=== PATIENT | female | born 1995 | race Caucasian/White ===

== ENCOUNTER 2021-03-29 19:22 | Observation (INO) | payer SELFPAY ==
[2021-03-29] MEDS ORDERED: Zofran 4 MG/2 ML VIAL IV ONE (19:40)
[2021-03-29] MEDS ORDERED: MORPHINE SULFATE 4 MG INJ IV ONE (19:40)
[2021-03-29] MEDS ORDERED: Sodium Chloride 0.9% 1000 ML 1,000 ML IV STA (19:40)
--- NOTE | 2021-03-29 19:43 | ERPHSYRPT ---
- History of Present Illness Time Seen by Provider: 03/29/21 19:30 Historian: patient Exam Limitations: no limitations Physician History: 25 years old female presented in the ER with sudden onset right upper quadrant pain almost an hour prior to arrival, constant, sharp, moderate to severe intensity, aggravated with palpation movements, deep breathing and position albert ge, unable to find a comfortable spot, associated with nausea and vomiting. Reports having similar symptoms 3 months ago, was evaluated at hospital in [place], was recommended to have cholecystectomy but patient never followed up with surgery. Denies any fever chills. Timing/Duration: hour(s) (1), constant, sudden, worse Activities at Onset: rest Quality: sharpness Abdominal Pain Onset Location: RUQ Pain Radiation: no radiation Severity of Pain-Max: severe Severity of Pain-Current: severe Modifying Factors: Worsens With: breathing, movement, palpation, vomiting Associated Symptoms: nausea, vomiting Previous symptoms: same symptoms as today Allergies/Adverse Reactions: No Known Drug Allergies Allergy (Unverified 03/29/21 19:31) Home Medications: No Reportable Medications [No Reported Medications] 03/29/21 [History] - Review of Systems Constitutional: No Symptoms Eyes: No Symptoms Ears, Nose, & Throat: No Symptoms Respiratory: No Symptoms Cardiac: No Symptoms Abdominal/Gastrointestinal: Abdominal Pain, Nausea, Vomiting Genitourinary Symptoms: No Symptoms Musculoskeletal: No Symptoms Skin: No Symptoms Neurological: No Symptoms Psychological: No Symptoms Endocrine: No Symptoms Hematologic/Lymphatic: No Symptoms Immunological/Allergic: No Symptoms - Nursing Vital Signs Nursing Vital Signs: Initial Vital Signs Temperature 98.3 F 03/29/21 19:31 Pulse Rate 100 H 03/29/21 19:31 Respiratory Rate 26 H 03/29/21 19:31 Blood Pressure 156/110 03/29/21 19:31 O2 Sat by Pulse Oximetry 98 03/29/21 19:31 Pain Scale Pain Intensity 5 - Physical Exam General Appearance: no apparent distress, alert Eye Exam: PERRL/EOMI Ears, Nose, Throat Exam: normal ENT inspection, pharynx normal Neck Exam: normal inspection, non-tender, supple, full range of motion Respiratory Exam: normal breath sounds, lungs clear Cardiovascular Exam: regular rate/rhythm, normal heart sounds Gastrointestinal/Abdomen Exam: soft, normal bowel sounds, tenderness (Right upper quadrant with guarding, positive Hunt sign) Back Exam: normal inspection, normal range of motion Extremity Exam: normal inspection, normal range of motion Neurologic Exam: alert, oriented x 3, cooperative Skin Exam: normal color SpO2 Interpretation: normal SpO2: 96 O2 Delivery: Room Air Ordered Tests: Active Orders 24 hr Category Date Time Status IV Insertion STAT Care 03/29/21 19:40 Active NPO (ED) STAT Care 03/29/21 19:40 Active ABDOMEN AND PELVIS W CONTRAST [CT] Stat Exams 03/29/21 20:15 Taken GALLBLADDER [US] Routine Exams 03/30/21 08:00 Ordered AMYLASE Stat Lab 03/29/21 19:51 Completed CBC W DIFF Stat Lab 03/29/21 19:51 Completed CMP Stat Lab 03/29/21 19:51 Completed HCG,QUALITATIVE URINE Stat Lab 03/29/21 19:51 Completed LIPASE Stat Lab 03/29/21 19:51 Completed UA W/RFX UR CULTURE Stat Lab 03/29/21 19:51 Completed Transfer Order Routine Transfer 03/29/21 Ordered Medication Summary Discontinued Medications Generic Name Dose Route Start Last Admin Trade Name Marixa PRN Reason Stop Dose Admin Hydromorphone HCl Confirm 03/29/21 20:11 Hydromorphone 1 Mg/Ml Injection Administered 03/29/21 20:12 Dose 1 mg .ROUTE .STK-MED ONE Hydromorphone HCl 1 mg 03/29/21 20:17 03/29/21 20:21 Hydromorphone 1 Mg/Ml Injection IV 03/29/21 20:18 1 mg STAT ONE Administration Hydromorphone HCl Confirm 03/29/21 22:19 Hydromorphone 1 Mg/Ml Injection Administered 03/29/21 22:20 Dose 1 mg .ROUTE .STK-MED ONE Hydromorphone HCl 1 mg 03/29/21 22:23 03/29/21 22:24 Hydromorphone 1 Mg/Ml Injection IV 03/29/21 22:24 1 mg STAT ONE Administration Sodium Chloride 1,000 mls @ 999 mls/hr 03/29/21 19:40 03/29/21 21:01 Sodium Chloride 0.9% 1000 Ml IV 03/29/21 20:40 Infused .Q1H1M STA Infusion Sodium Chloride Confirm 03/29/21 19:47 Sodium Chloride 0.9% 1000 Ml Administered 03/29/21 19:48 Dose 1,000 mls @ ud .ROUTE .STK-MED ONE Piperacillin Sod/Tazobactam 100 mls @ 200 mls/hr 03/29/21 23:24 Sod 3.375 gm/ Sodium Chloride IV 03/29/21 23:53 STAT ONE Morphine Sulfate 4 mg 03/29/21 19:40 03/29/21 19:47 Morphine Sulfate 4 Mg Inj IV 03/29/21 19:41 4 mg STAT ONE Administration Morphine Sulfate Confirm 03/29/21 19:47 Morphine Sulfate 4 Mg Inj Administered 03/29/21 19:48 Dose 4 mg .ROUTE .STK-MED ONE Morphine Sulfate 4 mg 03/30/21 00:05 Morphine Sulfate 4 Mg Inj IV 03/30/21 00:06 STAT ONE Ondansetron HCl 4 mg 03/29/21 19:40 03/29/21 19:48 Zofran 4 Mg/2 Ml Vial IV 03/29/21 19:41 4 mg STAT ONE Administration Ondansetron HCl Confirm 03/29/21 19:46 Zofran 4 Mg/2 Ml Vial Administered 03/29/21 19:47 Dose 4 mg .ROUTE .STK-MED ONE Lab/Rad Data: Laboratory Result Diagrams 03/29/21 19:51 03/29/21 19:51 Laboratory Results 03/29/21 03/29/21 03/29/21 Range/Units 23:06 19:51 19:51 WBC 8.0 (4.0-10.5) K/mm3 RBC 5.39 (4.1-5.4) M/mm3 Hgb 13.7 (12.0-16.0) gm/dl Hct 43.8 (35-47) % MCV 81.3 (78-100) fl MCH 25.4 L (26-32) pg MCHC 31.3 L (32-36) g/dl RDW 14.4 H (11.5-14.0) % Plt Count 243 (150-450) K/mm3 MPV 12.3 H (7.5-11.0) fl Gran % 63.0 (36.0-66.0) % Eos # (Auto) 0.20 (0-0.5) Absolute Lymphs (auto) 2.30 (1.0-4.6) Absolute Monos (auto) 0.43 (0.0-1.3) Lymphocytes % 28.6 (24.0-44.0) % Monocytes % 5.4 (0.0-12.0) % Eosinophils % 2.5 (0.00-5.0) % Basophils % 0.5 (0.0-0.4) % Absolute Granulocytes 5.06 (1.4-6.9) Basophils # 0.04 (0-0.4) Sodium 140 (137-145) mmol/L Potassium 4.0 (3.5-5.1) mmol/L Chloride 105 (98-107) mmol/L Carbon Dioxide 24 (22-30) mmol/L Anion Gap 14.4 (5-15) MEQ/L BUN 18 H (7-17) mg/dL Creatinine 0.81 (0.52-1.04) mg/dL Estimated GFR > 60.0 ML/MIN Glucose 93 (74-106) mg/dL Calcium 9.5 (8.4-10.2) mg/dL Total Bilirubin 0.40 (0.2-1.3) mg/dL AST 31 (14-36) U/L ALT 33 (0-35) U/L Alkaline Phosphatase 63 (38-126) U/L Serum Total Protein 7.5 (6.3-8.2) g/dL Albumin 4.4 (3.5-5.0) g/dL Amylase 63 (30-110) U/L Lipase 117 (23-300) U/L Urine Color (YELLOW) Urine Appearance (CLEAR) Urine pH (5-6) Ur Specific [place] (1.005-1.025) Urine Protein (Negative) Urine Ketones (NEGATIVE) Urine Blood (0-5) Herminio/ul Urine Nitrite (NEGATIVE) Urine Bilirubin (NEGATIVE) Urine Urobilinogen (0-1) mg/dL Ur Leukocyte Esterase (NEGATIVE) Urine WBC (Auto) (0-5) /HPF Urine RBC (Auto) (0-2) /HPF U Epithel Cells (Auto) (FEW) /HPF Urine Bacteria (Auto) (NEGATIVE) /HPF Urine Mucus (Auto) (NEGATIVE) /HPF Urine Culture Reflexed (NO) Urine Glucose (NEGATIVE) mg/dL Urine HCG, Qual (Negative) SARS-CoV-2 (PCR) NEGATIVE (NEGATIVE) 03/29/21 03/29/21 Range/Units 19:51 19:51 WBC (4.0-10.5) K/mm3 RBC (4.1-5.4) M/mm3 Hgb (12.0-16.0) gm/dl Hct (35-47) % MCV (78-100) fl MCH (26-32) pg MCHC (32-36) g/dl RDW (11.5-14.0) % Plt Count (150-450) K/mm3 MPV (7.5-11.0) fl Gran % (36.0-66.0) % Eos # (Auto) (0-0.5) Absolute Lymphs (auto) (1.0-4.6) Absolute Monos (auto) (0.0-1.3) Lymphocytes % (24.0-44.0) % Monocytes % (0.0-12.0) % Eosinophils % (0.00-5.0) % Basophils % (0.0-0.4) % Absolute Granulocytes (1.4-6.9) Basophils # (0-0.4) Sodium (137-145) mmol/L Potassium (3.5-5.1) mmol/L Chloride (98-107) mmol/L Carbon Dioxide (22-30) mmol/L Anion Gap (5-15) MEQ/L BUN (7-17) mg/dL Creatinine (0.52-1.04) mg/dL Estimated GFR ML/MIN Glucose (74-106) mg/dL Calcium (8.4-10.2) mg/dL Total Bilirubin (0.2-1.3) mg/dL AST (14-36) U/L ALT (0-35) U/L Alkaline Phosphatase (38-126) U/L Serum Total Protein (6.3-8.2) g/dL Albumin (3.5-5.0) g/dL Amylase (30-110) U/L Lipase (23-300) U/L Urine Color YELLOW (YELLOW) Urine Appearance SLIGHTLY CLOUDY (CLEAR) Urine pH 5.0 (5-6) Ur Specific [place] 1.018 (1.005-1.025) Urine Protein NEGATIVE (Negative) Urine Ketones NEGATIVE (NEGATIVE) Urine Blood NEGATIVE (0-5) Herminio/ul Urine Nitrite NEGATIVE (NEGATIVE) Urine Bilirubin NEGATIVE (NEGATIVE) Urine Urobilinogen NEGATIVE (0-1) mg/dL Ur Leukocyte Esterase NEGATIVE (NEGATIVE) Urine WBC (Auto) NONE (0-5) /HPF Urine RBC (Auto) NONE (0-2) /HPF U Epithel Cells (Auto) RARE (FEW) /HPF Urine Bacteria (Auto) NONE SEEN (NEGATIVE) /HPF Urine Mucus (Auto) SLIGHT (NEGATIVE) /HPF Urine Culture Reflexed NO (NO) Urine Glucose NEGATIVE (NEGATIVE) mg/dL Urine HCG, Qual NEGATIVE (Negative) SARS-CoV-2 (PCR) (NEGATIVE) - Progress Progress: improved, pain not gone completely, re-examined Progress Note: 03/29/21 23:21 25 years old is evaluated for right upper quadrant pain sudden onset with repeated vomiting. She is given fluids and multiple doses of pain medication, on reevaluation her pain is better. Work-up showed normal white count, grossly unremarkable chemistries and normal liver enzymes. I have obtained CT abdomen pelvis with contrast which showed distended gallbladder but no obvious stone or pericholecystic fluid or gallbladder wall thickness. Discussed with Dr. Suh, recommended admission to medical floor and ultrasound in the morning and patient will be evaluated as per result of ultrasound. Discussed with Dr. Figueroa and patient is admitted. Discussed with : Karissa Sosa Will see patient in: hospital (observation) Counseled pt/family regarding: lab results, diagnosis, rad results - Departure Departure Disposition: Home Clinical Impression: RUQ pain Condition: Stable Critical Care Time: No Referrals: DOCTOR,NO FAMILY [Primary Care Provider] -
[2021-03-29] MEDS ORDERED: Zofran 4 MG/2 ML VIAL ONE (19:46)
[2021-03-29] MEDS ORDERED: MORPHINE SULFATE 4 MG INJ ONE (19:47)
[2021-03-29] MEDS ORDERED: Sodium Chloride 0.9% 1000 ML 1,000 ML ONE (19:47)
[2021-03-29 19:55] LABS: Absolute Neutrophil Ct (ANC) 5.06 (1.4-6.9); BASOPHIL % 0.5 % (0.0-0.4); Basophil (Absolute #) 0.04 (0-0.4); Eosinophil % 2.5 % (0.00-5.0); Hematocrit 43.8 % (35-47); Hemoglobin 13.7 gm/dl (12.0-16.0); Lymphocytes % 28.6 % (24.0-44.0); Mean Cell Volume 81.3 fl (78-100); Mean Corpuscular Hemoglobin 25.4 pg (26-32); Mean Corpuscular Hgb Concent. 31.3 g/dl (32-36); Mean Platelet Volume 12.3 fl (7.5-11.0); Monocyte (Absolute #) 0.43 (0.0-1.3); Monocytes % 5.4 % (0.0-12.0); Platelet Count 243 K/mm3 (150-450); Red Blood Count 5.39 M/mm3 (4.1-5.4); Red Cell Distribution Width 14.4 % (11.5-14.0)
[2021-03-29 19:57] LABS: Appearance SLIGHTLY CLOUDY (CLEAR); Bilirubin NEGATIVE (NEGATIVE); Blood NEGATIVE Ery/ul (0-5); Epithelial Cells RARE /HPF (FEW); Glucose NEGATIVE (NEGATIVE); Ketones NEGATIVE (NEGATIVE); Leukocyte Esterase NEGATIVE (NEGATIVE); Mucus SLIGHT /HPF (NEGATIVE); Nitrite NEGATIVE (NEGATIVE); Protein,Urine Dip NEGATIVE (Negative); Specific Gravity 1.018 (1.005-1.025); Urobilinogen NEGATIVE mg/dL (0-1)
[2021-03-29 20:00] LABS: Bacteria NONE SEEN /HPF (NEGATIVE)
[2021-03-29 20:08] LABS: ALBUMIN 4.4 g/dL (3.5-5.0); ALKALINE PHOSPHATASE 63 U/L (38-126); AMYLASE 63 U/L (30-110); ANION GAP 14.4 MEQ/L (5-15); BLOOD UREA NITROGEN 18 mg/dL (7-17); CHLORIDE 105 mmol/L (98-107); Calcium 9.5 mg/dL (8.4-10.2); Carbon Dioxide 24 mmol/L (22-30); Creatinine 1 0.81 mg/dL (0.52-1.04); EST GLOMERULAR FILTRATION RATE > 60.0 ML/MIN; Glucose 93 mg/dL (74-106); LIPASE 117 U/L (23-300); SGOT/AST 31 U/L (14-36); SGPT/ALT 33 U/L (0-35); SODIUM 140 mmol/L (137-145); Total Protein 7.5 g/dL (6.3-8.2)
[2021-03-29] MEDS ORDERED: Hydromorphone 1 mg/ml Injection ONE ×2 (20:11→22:19)
[2021-03-29] MEDS ORDERED: Hydromorphone 1 mg/ml Injection IV ONE ×2 (20:17→22:23)
[2021-03-29] MEDS ORDERED: Zosyn 3.375 GM Vial 3.375 GM in Sodium Chloride 100ML MINI-BAG PLUS 100 ML IV ONE (23:24)
[2021-03-30] MEDS ORDERED: MORPHINE SULFATE 4 MG INJ IV ONE (00:05)
[2021-03-30] MEDS ORDERED: MORPHINE SULFATE 4 MG INJ ONE (00:09)
[2021-03-30] MEDS ORDERED: Zofran 4 MG/2 ML VIAL IV PRN (00:23)
[2021-03-30] MEDS ORDERED: MORPHINE SULFATE 4 MG INJ IV PRN (00:23)
[2021-03-30] MEDS ORDERED: DUONEB 0.5-3 MG/3 ml Neb IH PRN (00:23)
[2021-03-30] MEDS: Sodium Chloride 0.9% W/ 20 mEq KCl/LITER 1,000 ML IV SCH ×3 (00:42→17:40)
[2021-03-30] MEDS: Zosyn 3.375 GM Vial 3.375 GM in Sodium Chloride 100ML MINI-BAG PLUS 100 ML IV SCH ×4 (01:40→19:42)
[2021-03-30] MEDS: Hydromorphone 1 mg/ml Injection IV PRN ×7 (01:45→22:55)
[2021-03-30 04:31] LABS: Absolute Neutrophil Ct (ANC) 9.63 (1.4-6.9); BASOPHIL % 0.2 % (0.0-0.4); Basophil (Absolute #) 0.03 (0-0.4); Eosinophil % 0.9 % (0.00-5.0); Eosinophil (Absolute #) 0.11 (0-0.5); Hematocrit 42.6 % (35-47); Hemoglobin 13.3 gm/dl (12.0-16.0); Lymphocyte (Absolute #) 1.67 (1.0-4.6); Lymphocytes % 13.8 % (24.0-44.0); Mean Cell Volume 81.9 fl (78-100); Mean Corpuscular Hemoglobin 25.6 pg (26-32); Mean Corpuscular Hgb Concent. 31.2 g/dl (32-36); Mean Platelet Volume 11.7 fl (7.5-11.0); Monocyte (Absolute #) 0.62 (0.0-1.3); Monocytes % 5.1 % (0.0-12.0); Platelet Count 204 K/mm3 (150-450); Red Cell Distribution Width 14.4 % (11.5-14.0); White Blood Count 12.1 K/mm3 (4.0-10.5)
[2021-03-30 04:56] LABS: ALKALINE PHOSPHATASE 62 U/L (38-126); ANION GAP 12.2 MEQ/L (5-15); BLOOD UREA NITROGEN 12 mg/dL (7-17); CHLORIDE 104 mmol/L (98-107); Calcium 8.9 mg/dL (8.4-10.2); Carbon Dioxide 25 mmol/L (22-30); Creatinine 1 0.83 mg/dL (0.52-1.04); EST GLOMERULAR FILTRATION RATE > 60.0 ML/MIN; Glucose 98 mg/dL (74-106); Potassium 4.3 mmol/L (3.5-5.1); SGOT/AST 28 U/L (14-36); SGPT/ALT 31 U/L (0-35); SODIUM 137 mmol/L (137-145)
[2021-03-30] MEDS ORDERED: Sodium Chloride 100ML MINI-BAG PLUS 100 ML IV ONE (06:29)
[2021-03-30] MEDS ORDERED: Zosyn 3.375 GM Vial IV ONE (06:29)
--- NOTE | 2021-03-30 08:39 | XRAY ---
Indication: Right upper quadrant pain. Nausea and vomiting. Two-dimensional gallbladder sonogram performed. Comparison: None Gallbladder moderately distended with a few gallstones near the neck of the gallbladder, largest 2 cm. Gallbladder wall is thickened measuring 5 mm. No pericholecystic fluid. Common bile duct measures 6.7 mm. No intrahepatic biliary distention. Remaining visualized liver, pancreas, and right kidney sonographically unremarkable. Right kidney measures 10.7 cm in length. No ascites. Impression: Distended gallbladder with cholelithiasis and wall thickening. Rule out chronic cholecystitis. Comment: Preliminary report was given.
--- NOTE | 2021-03-30 08:42 | XRAY ---
Indication: Right upper quadrant pain. Gallbladder disease. Multiple contiguous axial images obtained through the abdomen and pelvis using 80 cc Isovue 370 contrast. Comparison: None Lung bases are clear. Heart is not enlarged. Stomach mildly distended with fluid. Noncontrasted stomach and bowel loops nonobstructed. Normal appendix. Gallbladder mildly distended without gallstones or biliary distention. Spleen is enlarged measuring 14 cm. Remaining liver, pancreas, adrenal glands, kidneys, ureters, bladder, uterus, and aorta are unremarkable. No pathologic retroperitoneal lymphadenopathy. Osseous structures intact. Impression: 1. Mild distended gallbladder. Gallbladder sonogram may yield further information if clinically warranted. 2. Splenomegaly. 3. Remaining CT abdomen/pelvis with contrast exam is negative. Comment: Preliminary interpretation was made by [facility]. No critical discrepancy.
[2021-03-30] MEDS: Pepcid 20 MG VIAL IV SCH ×2 (08:51→22:55)
[2021-03-30] MEDS ORDERED: [UNRECOGNIZED DRUG - OTHER] PO SCH (10:00)
--- NOTE | 2021-03-30 10:01 | PCM.HP ---
History of Present Illness - Chief Complaint Chief Complaint: rt upper quad pain History of Present Illness: is a 25 year old female seen and examined this am following ER admission for acute cholecystitis. Patient is from [place] and has been here visiting. She developed severe abdominal pain and came to ER. She reports that she was diagnosed with GB disease at a hospital in [place] where she is from. She reports being admitted to the hospital for 4 days at that time. She reports she was told she needed to be seen by digital coordinator due to hx of hep C prior to having her GB removed. She never saw hepatologists. She reports her hep C is in "remission". She reports recent vomiting and diarrhea. She denies any medical problems and reports the only medication she takes is control. She reports she smokes 3-4 cig daily. She drinks at least 2-3 times a week and on the wee kends approx 6 hard alcohol drinks. She reports hx of drug use and that is how she contracted hep C. She has no other reported concerns at this time. - Review of Systems Constitutional: No Fever, No Chills Eyes: No Symptoms Ears, Nose, & Throat: No Symptoms Respiratory: No Cough, No Short Of Breath, No Wheezing Cardiac: No Chest Pain, No Edema Abdominal/Gastrointestinal: Abdominal Pain, Vomiting, Diarrhea, No Constipation Genitourinary Symptoms: No Symptoms Musculoskeletal: No Symptoms Skin: No Symptoms Neurological: No Headache Psychological: Drug Abuse (hx of denies current), Other (alcohol use everyday smoker), No Anxiety, No Depression Hematologic/Lymphatic: No Symptoms Immunological/Allergic: No Symptoms Medications & Allergies Home Medications: Home Medication List Non-Formulary Drug [Non-Formulary Item] 1 tablet PO DAILY 03/30/21 [History Confirmed 03/30/21] Allergies/Adverse Reactions: Allergies Allergy/AdvReac Type Severity Reaction Status Date / Time No Known Drug Allergies Allergy Verified 03/30/21 00:37 - Past Medical History Past Medical History: Yes Neurological History: No Pertinent History ENT History: No Pertinent History Cardiac History: No Pertinent History Respiratory History: No Pertinent History Endocrine Medical History: No Pertinent History Musculoskelatal History: No Pertinent History GI Medical History: Gallbladder Disease History: No Pertinent History Pyscho-Social History: No Pertinent History Reproductive Disorders: Menstrual Problems Comment: hep C -pt states not active - Female History Are you now?: (unkn) - Past Surgical History Past Surgical History: Yes Neuro Surgical History: No Pertinent History Cardiac History: No Pertinent History Respiratory Surgery: No Pertinent History GI Surgical History: No Pertinent History Genitourinary Surgical Hx: No Pertinent History Musculskeletal Surgical Hx: Orthopedic Surgery Female Surgical History: No Pertinent History Other Surgical History: left knee, etopic surgery with tube removal , in grown hair on buttocks - Social History Smoking Status: Current every day smoker Exposure to second hand smoke: Yes Alcohol: Weekly Drug Use: marijuana - Physical Exam Vital Signs: Vital Signs - 24 hr Temp Pulse Resp BP Pulse Ox 03/30/21 06:46 98.5 F 86 16 125/81 99 03/30/21 04:00 97.0 F 60 19 140/87 97 03/30/21 01:01 98.6 F 78 20 134/96 98 03/30/21 00:08 72 128/74 97 03/30/21 00:07 96 03/29/21 23:00 60 113/80 100 03/29/21 22:22 77 123/79 100 03/29/21 21:00 69 114/74 98 03/29/21 19:31 98.3 F 100 H 26 H 156/110 98 General Appearance: mild distress, alert, obese Neurologic Exam: alert, oriented x 3, cooperative, normal mood/affect, No motor deficits, No disoriented, No confusion, No agitation, No depressed mood/affect Eye Exam: eyes nml inspection, No scleral icterus Ears, Nose, Throat Exam: moist mucous membranes Neck Exam: normal inspection Respiratory Exam: normal breath sounds, lungs clear, No respiratory distress, No diminished breath sounds, No wheezing Cardiovascular Exam: regular rate/rhythm, normal heart sounds, No murmur, No friction rub, No gallop Gastrointestinal/Abdomen Exam: soft, normal bowel sounds, tenderness, No distention, No mass, No guarding, No rebound Pelvic Exam: not done Rectal Exam: not done Back Exam: normal inspection Extremity Exam: No pedal edema, No swelling, No tenderness Skin Exam: normal color, warm, dry Results - Labs Lab/Micro Results: Lab Results-Last 24 Hours 03/29/21 03/29/21 03/29/21 Range/Units 19:51 19:51 19:51 WBC 8.0 (4.0-10.5) K/mm3 RBC 5.39 (4.1-5.4) M/mm3 Hgb 13.7 (12.0-16.0) gm/dl Hct 43.8 (35-47) % MCV 81.3 (78-100) fl MCH 25.4 L (26-32) pg MCHC 31.3 L (32-36) g/dl RDW 14.4 H (11.5-14.0) % Plt Count 243 (150-450) K/mm3 MPV 12.3 H (7.5-11.0) fl Gran % 63.0 (36.0-66.0) % Eos # (Auto) 0.20 (0-0.5) Absolute Lymphs (auto) 2.30 (1.0-4.6) Absolute Monos (auto) 0.43 (0.0-1.3) Lymphocytes % 28.6 (24.0-44.0) % Monocytes % 5.4 (0.0-12.0) % Eosinophils % 2.5 (0.00-5.0) % Basophils % 0.5 (0.0-0.4) % Absolute Granulocytes 5.06 (1.4-6.9) Basophils # 0.04 (0-0.4) Sodium (137-145) mmol/L Potassium (3.5-5.1) mmol/L Chloride (98-107) mmol/L Carbon Dioxide (22-30) mmol/L Anion Gap (5-15) MEQ/L BUN (7-17) mg/dL Creatinine (0.52-1.04) mg/dL Estimated GFR ML/MIN Glucose (74-106) mg/dL Calcium (8.4-10.2) mg/dL Total Bilirubin (0.2-1.3) mg/dL AST (14-36) U/L ALT (0-35) U/L Alkaline Phosphatase (38-126) U/L Serum Total Protein (6.3-8.2) g/dL Albumin (3.5-5.0) g/dL Amylase (30-110) U/L Lipase (23-300) U/L Urine Color YELLOW (YELLOW) Urine Appearance SLIGHTLY CLOUDY (CLEAR) Urine pH 5.0 (5-6) Ur Specific [place] 1.018 (1.005-1.025) Urine Protein NEGATIVE (Negative) Urine Ketones NEGATIVE (NEGATIVE) Urine Blood NEGATIVE (0-5) Herminio/ul Urine Nitrite NEGATIVE (NEGATIVE) Urine Bilirubin NEGATIVE (NEGATIVE) Urine Urobilinogen NEGATIVE (0-1) mg/dL Ur Leukocyte Esterase NEGATIVE (NEGATIVE) Urine WBC (Auto) NONE (0-5) /HPF Urine RBC (Auto) NONE (0-2) /HPF U Epithel Cells (Auto) RARE (FEW) /HPF Urine Bacteria (Auto) NONE SEEN (NEGATIVE) /HPF Urine Mucus (Auto) SLIGHT (NEGATIVE) /HPF Urine Culture Reflexed NO (NO) Urine Glucose NEGATIVE (NEGATIVE) mg/dL Urine HCG, Qual NEGATIVE (Negative) SARS-CoV-2 (PCR) (NEGATIVE) 03/29/21 03/29/21 03/30/21 Range/Units 19:51 23:06 04:23 WBC 12.1 H (4.0-10.5) K/mm3 RBC 5.20 (4.1-5.4) M/mm3 Hgb 13.3 (12.0-16.0) gm/dl Hct 42.6 (35-47) % MCV 81.9 (78-100) fl MCH 25.6 L (26-32) pg MCHC 31.2 L (32-36) g/dl RDW 14.4 H (11.5-14.0) % Plt Count 204 (150-450) K/mm3 MPV 11.7 H (7.5-11.0) fl Gran % 80.0 H (36.0-66.0) % Eos # (Auto) 0.11 (0-0.5) Absolute Lymphs (auto) 1.67 (1.0-4.6) Absolute Monos (auto) 0.62 (0.0-1.3) Lymphocytes % 13.8 L (24.0-44.0) % Monocytes % 5.1 (0.0-12.0) % Eosinophils % 0.9 (0.00-5.0) % Basophils % 0.2 (0.0-0.4) % Absolute Granulocytes 9.63 H (1.4-6.9) Basophils # 0.03 (0-0.4) Sodium 140 (137-145) mmol/L Potassium 4.0 (3.5-5.1) mmol/L Chloride 105 (98-107) mmol/L Carbon Dioxide 24 (22-30) mmol/L Anion Gap 14.4 (5-15) MEQ/L BUN 18 H (7-17) mg/dL Creatinine 0.81 (0.52-1.04) mg/dL Estimated GFR > 60.0 ML/MIN Glucose 93 (74-106) mg/dL Calcium 9.5 (8.4-10.2) mg/dL Total Bilirubin 0.40 (0.2-1.3) mg/dL AST 31 (14-36) U/L ALT 33 (0-35) U/L Alkaline Phosphatase 63 (38-126) U/L Serum Total Protein 7.5 (6.3-8.2) g/dL Albumin 4.4 (3.5-5.0) g/dL Amylase 63 (30-110) U/L Lipase 117 (23-300) U/L Urine Color (YELLOW) Urine Appearance (CLEAR) Urine pH (5-6) Ur Specific [place] (1.005-1.025) Urine Protein (Negative) Urine Ketones (NEGATIVE) Urine Blood (0-5) Herminio/ul Urine Nitrite (NEGATIVE) Urine Bilirubin (NEGATIVE) Urine Urobilinogen (0-1) mg/dL Ur Leukocyte Esterase (NEGATIVE) Urine WBC (Auto) (0-5) /HPF Urine RBC (Auto) (0-2) /HPF U Epithel Cells (Auto) (FEW) /HPF Urine Bacteria (Auto) (NEGATIVE) /HPF Urine Mucus (Auto) (NEGATIVE) /HPF Urine Culture Reflexed (NO) Urine Glucose (NEGATIVE) mg/dL Urine HCG, Qual (Negative) SARS-CoV-2 (PCR) NEGATIVE (NEGATIVE) 03/30/21 Range/Units 04:23 WBC (4.0-10.5) K/mm3 RBC (4.1-5.4) M/mm3 Hgb (12.0-16.0) gm/dl Hct (35-47) % MCV (78-100) fl MCH (26-32) pg MCHC (32-36) g/dl RDW (11.5-14.0) % Plt Count (150-450) K/mm3 MPV (7.5-11.0) fl Gran % (36.0-66.0) % Eos # (Auto) (0-0.5) Absolute Lymphs (auto) (1.0-4.6) Absolute Monos (auto) (0.0-1.3) Lymphocytes % (24.0-44.0) % Monocytes % (0.0-12.0) % Eosinophils % (0.00-5.0) % Basophils % (0.0-0.4) % Absolute Granulocytes (1.4-6.9) Basophils # (0-0.4) Sodium 137 (137-145) mmol/L Potassium 4.3 (3.5-5.1) mmol/L Chloride 104 (98-107) mmol/L Carbon Dioxide 25 (22-30) mmol/L Anion Gap 12.2 (5-15) MEQ/L BUN 12 (7-17) mg/dL Creatinine 0.83 (0.52-1.04) mg/dL Estimated GFR > 60.0 ML/MIN Glucose 98 (74-106) mg/dL Calcium 8.9 (8.4-10.2) mg/dL Total Bilirubin 0.60 (0.2-1.3) mg/dL AST 28 (14-36) U/L ALT 31 (0-35) U/L Alkaline Phosphatase 62 (38-126) U/L Serum Total Protein 7.0 (6.3-8.2) g/dL Albumin 4.0 (3.5-5.0) g/dL Amylase (30-110) U/L Lipase (23-300) U/L Urine Color (YELLOW) Urine Appearance (CLEAR) Urine pH (5-6) Ur Specific [place] (1.005-1.025) Urine Protein (Negative) Urine Ketones (NEGATIVE) Urine Blood (0-5) Herminio/ul Urine Nitrite (NEGATIVE) Urine Bilirubin (NEGATIVE) Urine Urobilinogen (0-1) mg/dL Ur Leukocyte Esterase (NEGATIVE) Urine WBC (Auto) (0-5) /HPF Urine RBC (Auto) (0-2) /HPF U Epithel Cells (Auto) (FEW) /HPF Urine Bacteria (Auto) (NEGATIVE) /HPF Urine Mucus (Auto) (NEGATIVE) /HPF Urine Culture Reflexed (NO) Urine Glucose (NEGATIVE) mg/dL Urine HCG, Qual (Negative) SARS-CoV-2 (PCR) (NEGATIVE) - Radiology Impressions Radiology Exams & Impressions: Radiology Procedures Category Date Time Status ABDOMEN AND PELVIS W CONTRAST [CT] Stat Exams 03/29/21 20:15 Completed GALLBLADDER [US] Routine Exams 03/30/21 07:33 Completed Assessment/Plan (1) RUQ pain Current Visit: Yes Status: Acute Assessment & Plan: Patient has CT imaging that supports GB disease. WBC is elevated. Patient will have surgery consult to eval for possible lap arash. Patient is requiring high dose of pain medication to manage her pain. Will keep patient NPO and follow surgery's recs. Code(s): R10.11 - RIGHT UPPER QUADRANT PAIN (2) Hx of hepatitis C Current Visit: Yes Status: Acute Assessment & Plan: Patient is reporting hx of hep c. She denies and tx and reports that it resolved. She reports hx of drug use that led to hep C. Code(s): Z86.19 - PERSONAL HISTORY OF OTHER INFECTIOUS AND PARASITIC DISEASES
[2021-03-30] MEDS: PATIENT OWN MEDICATION PO SCH (11:46)
[2021-03-30 16:33] LABS: Amphetamine,Urine NEGATIVE (NEGATIVE); Barbiturate,Urine NEGATIVE (NEGATIVE); Benzodiazepine,Urine NEGATIVE (NEGATIVE); Cocaine,Urine NEGATIVE (NEGATIVE); Methadone,Urine NEGATIVE (NEGATIVE); Opiate,Urine POSITIVE (NEGATIVE); PCP,Urine NEGATIVE (NEGATIVE); THC,Urine NEGATIVE (NEGATIVE)
[2021-03-31] MEDS: Zosyn 3.375 GM Vial 3.375 GM in Sodium Chloride 100ML MINI-BAG PLUS 100 ML IV SCH ×4 (00:24→18:54)
[2021-03-31] MEDS: Hydromorphone 1 mg/ml Injection IV PRN ×3 (01:39→08:12)
[2021-03-31] MEDS: Sodium Chloride 0.9% W/ 20 mEq KCl/LITER 1,000 ML IV SCH ×2 (02:52→11:56)
[2021-03-31 05:06] LABS: Absolute Neutrophil Ct (ANC) 6.47 (1.4-6.9); BASOPHIL % 0.2 % (0.0-0.4); Basophil (Absolute #) 0.02 (0-0.4); Eosinophil % 1.4 % (0.00-5.0); Eosinophil (Absolute #) 0.13 (0-0.5); Hematocrit 39.8 % (35-47); Hemoglobin 12.2 gm/dl (12.0-16.0); Lymphocyte (Absolute #) 1.82 (1.0-4.6); Lymphocytes % 19.5 % (24.0-44.0); Mean Cell Volume 82.7 fl (78-100); Mean Corpuscular Hemoglobin 25.4 pg (26-32); Mean Corpuscular Hgb Concent. 30.7 g/dl (32-36); Mean Platelet Volume 12.2 fl (7.5-11.0); Monocyte (Absolute #) 0.91 (0.0-1.3); Monocytes % 9.7 % (0.0-12.0); Neutrophil % 69.2 % (36.0-66.0); Platelet Count 184 K/mm3 (150-450); Red Blood Count 4.81 M/mm3 (4.1-5.4); Red Cell Distribution Width 14.5 % (11.5-14.0); White Blood Count 9.4 K/mm3 (4.0-10.5)
[2021-03-31 05:16] LABS: ALBUMIN 3.8 g/dL (3.5-5.0); ALKALINE PHOSPHATASE 61 U/L (38-126); ANION GAP 12.1 MEQ/L (5-15); BLOOD UREA NITROGEN 7 mg/dL (7-17); CHLORIDE 102 mmol/L (98-107); Calcium 8.7 mg/dL (8.4-10.2); Carbon Dioxide 26 mmol/L (22-30); Creatinine 1 0.89 mg/dL (0.52-1.04); Direct Bilirubin 0 mg/dL (0.0-0.4); EST GLOMERULAR FILTRATION RATE > 60.0 ML/MIN; Glucose 78 mg/dL (74-106); Potassium 4.2 mmol/L (3.5-5.1); SGOT/AST 25 U/L (14-36); SGPT/ALT 24 U/L (0-35); SODIUM 136 mmol/L (137-145); Total Protein 6.6 g/dL (6.3-8.2)
[2021-03-31] MEDS: Pepcid 20 MG VIAL IV SCH ×2 (08:12→21:16)
[2021-03-31] MEDS: PATIENT OWN MEDICATION PO SCH (08:13)
[2021-03-31] MEDS ORDERED: MOTRIN 400 MG PO PRN (08:34)
[2021-03-31] MEDS: DILAUDID 1 MG/1ML PCA IV PRN ×3 (08:59→16:49)
[2021-03-31 13:39] LABS: AMYLASE 43 U/L (30-110); LIPASE 35 U/L (23-300)
--- NOTE | 2021-03-31 22:17 | PCM.NOTE ---
Date and Time: 03/31/212154 Subjective Assessment: Patient seen and examined today. She is doing much better on the [employer] pain pump. Her pain is better controlled. She would like to be able to eat if she is not going to be having surgery. She has no other reported concerns. - Review of Systems Constitutional: No Symptoms Eyes: No Symptoms Ears, Nose, & Throat: No Symptoms Respiratory: No Symptoms Cardiac: No Symptoms Abdominal/Gastrointestinal: Abdominal Pain, Appetite Changes (Patient is hungry), No Nausea, No Vomiting, No Diarrhea, No Constipation Genitourinary Symptoms: No Symptoms Musculoskeletal: No Symptoms Skin: No Symptoms Neurological: No Symptoms Psychological: Drug Abuse (hx of drug abuse and hep c) Endocrine: No Symptoms Objective Exam General Appearance: no apparent distress, obese Neurologic Exam: alert, oriented x 3, cooperative, normal mood/affect, No disoriented, No confusion, No agitation Skin Exam: normal color, warm, dry Eye Exam: eyes nml inspection, No scleral icterus Ears, Nose, Throat Exam: moist mucous membranes Neck Exam: normal inspection Respiratory Exam: normal breath sounds, lungs clear, No respiratory distress, No diminished breath sounds, No wheezing Cardiovascular Exam: regular rate/rhythm, normal heart sounds, No murmur, No friction rub, No gallop Gastrointestinal/Abdomen Exam: soft, normal bowel sounds, tenderness, No distention, No mass, No guarding, No rebound Extremity Exam: normal inspection, No pedal edema, No swelling Pelvic Exam: deferred Rectal Exam: deferred OBJECTIVE DATA Vital Signs: Vital Signs - 24 hr Temp Pulse Resp BP Pulse Ox 03/31/21 19:58 98.3 F 83 16 100/70 97 03/31/21 16:49 98 03/31/21 16:36 98 03/31/21 16:00 96.1 F 93 H 21 128/76 100 03/31/21 12:36 97 03/31/21 12:00 98.1 F 72 18 110/65 99 03/31/21 08:00 96.5 F 70 18 107/56 99 03/31/21 04:00 97.5 F 66 16 120/63 97 03/31/21 00:00 97.5 F 67 14 100/61 96 Pain Assessment - Last Documented Pain Intensity 0 Pain Scale Used [facility] Intake and Output: Intake & Output 03/29/21 03/30/21 03/31/21 06/16/21 11:59 11:59 11:59 11:59 Intake Total 0 2203 988 Output Total 250 2250 300 Balance -250 -47 688 Weight 96.2 kg 95.1 kg Lab Results: Lab Results-Last 24 Hours 03/31/21 03/31/21 03/31/21 Range/Units 04:22 04:22 13:15 WBC 9.4 (4.0-10.5) K/mm3 RBC 4.81 (4.1-5.4) M/mm3 Hgb 12.2 (12.0-16.0) gm/dl Hct 39.8 (35-47) % MCV 82.7 (78-100) fl MCH 25.4 L (26-32) pg MCHC 30.7 L (32-36) g/dl RDW 14.5 H (11.5-14.0) % Plt Count 184 (150-450) K/mm3 MPV 12.2 H (7.5-11.0) fl Gran % 69.2 H (36.0-66.0) % Eos # (Auto) 0.13 (0-0.5) Absolute Lymphs (auto) 1.82 (1.0-4.6) Absolute Monos (auto) 0.91 (0.0-1.3) Lymphocytes % 19.5 L (24.0-44.0) % Monocytes % 9.7 (0.0-12.0) % Eosinophils % 1.4 (0.00-5.0) % Basophils % 0.2 (0.0-0.4) % Absolute Granulocytes 6.47 (1.4-6.9) Basophils # 0.02 (0-0.4) Sodium 136 L (137-145) mmol/L Potassium 4.2 (3.5-5.1) mmol/L Chloride 102 (98-107) mmol/L Carbon Dioxide 26 (22-30) mmol/L Anion Gap 12.1 (5-15) MEQ/L BUN 7 (7-17) mg/dL Creatinine 0.89 (0.52-1.04) mg/dL Estimated GFR > 60.0 ML/MIN Glucose 78 (74-106) mg/dL Calcium 8.7 (8.4-10.2) mg/dL Total Bilirubin 1.20 (0.2-1.3) mg/dL Direct Bilirubin 0 (0.0-0.4) mg/dL AST 25 (14-36) U/L ALT 24 (0-35) U/L Alkaline Phosphatase 61 (38-126) U/L Serum Total Protein 6.6 (6.3-8.2) g/dL Albumin 3.8 (3.5-5.0) g/dL Amylase 43 (30-110) U/L Lipase 35 (23-300) U/L Radiology Exams: Radiology Procedures Category Date Time Status GALLBLADDER [US] Routine Exams 03/30/21 07:33 Completed Multi-Disciplinary Progress Notes: Multi-Disciplinary Progress Notes 03/31/21 09:29 Case Management Note by Floridalma Jacinto PATIENT CONTINUES TO DENY ANY NEW NEEDS REGARDING DC AT THIS TIME. SHE PLANS TO RETURN HOME TO HER PRIOR LEVEL OF FUNCTIONING. WILL NEED TO CHECK COST OF MEDICATION AT TIME OF DC D/T PATIENT NOT HAVING ANY INSURANCE IN [place] Initialized on 03/31/21 09:29 - END OF NOTE Assessment/Plan (1) RUQ pain Current Visit: Yes Status: Acute Assessment & Plan: Due to patient's poor pain control and requiring 1 mg of dilaudid every 2 hours, patient was placed on [employer] which has improved her pain. Surgery wanted records from outside hospital to determine safely of proceeding with lap arash. Patient is still NPO this am. Will follow up on surgeries recs. Patient will continue with IV fluids pain meds and NPO. WBC this am was improved. Amylase and Lipase levels were wnl. Patient looked more comfortable during exam. Code(s): R10.11 - RIGHT UPPER QUADRANT PAIN (2) Hx of hepatitis C Current Visit: Yes Status: Acute Assessment & Plan: Patient reports previous drug hx and hep C hx. She stated she was in remission and does not currently see a specialist. Outside records have been requested. 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 Code(s): Z86.19 - PERSONAL HISTORY OF OTHER INFECTIOUS AND PARASITIC DISEASES (3) Smoker Current Visit: Yes Status: Acute Code(s): F17.200 - NICOTINE DEPENDENCE, UNSPECIFIED, UNCOMPLICATED
[2021-03-31] MEDS: NICOTINE PATCH 7MG TD SCH (23:59)
[2021-04-01] MEDS: Zosyn 3.375 GM Vial 3.375 GM in Sodium Chloride 100ML MINI-BAG PLUS 100 ML IV SCH ×4 (00:10→20:51)
[2021-04-01] MEDS: Sodium Chloride 0.9% W/ 20 mEq KCl/LITER 1,000 ML IV SCH ×2 (02:25→21:38)
[2021-04-01] MEDS ORDERED: MEFOXIN 2 GM PREMIX** 2 GM/50 ML ML IV SCH (05:00)
[2021-04-01] MEDS ORDERED: Lactated Ringers 1,000 ML IV SCH (05:00)
[2021-04-01 05:08] LABS: ALBUMIN 3.6 g/dL (3.5-5.0); ALKALINE PHOSPHATASE 67 U/L (38-126); BLOOD UREA NITROGEN 8 mg/dL (7-17); CHLORIDE 103 mmol/L (98-107); Calcium 8.4 mg/dL (8.4-10.2); Carbon Dioxide 26 mmol/L (22-30); Creatinine 1 0.88 mg/dL (0.52-1.04); EST GLOMERULAR FILTRATION RATE > 60.0 ML/MIN; Glucose 80 mg/dL (74-106); SGOT/AST 28 U/L (14-36); SGPT/ALT 26 U/L (0-35); SODIUM 135 mmol/L (137-145); Total Protein 6.6 g/dL (6.3-8.2)
[2021-04-01 05:10] LABS: Potassium 4.5 mmol/L (3.5-5.1)
[2021-04-01 05:24] LABS: BASOPHIL % 0.3 % (0.0-0.4); Basophil (Absolute #) 0.02 (0-0.4); Eosinophil % 1.4 % (0.00-5.0); Hematocrit 39.7 % (35-47); Hemoglobin 12.4 gm/dl (12.0-16.0); Lymphocyte (Absolute #) 1.71 (1.0-4.6); Lymphocytes % 23.4 % (24.0-44.0); Mean Corpuscular Hemoglobin 25.6 pg (26-32); Mean Corpuscular Hgb Concent. 31.2 g/dl (32-36); Mean Platelet Volume 12.2 fl (7.5-11.0); Monocyte (Absolute #) 0.77 (0.0-1.3); Monocytes % 10.5 % (0.0-12.0); Neutrophil % 64.4 % (36.0-66.0); Platelet Count 180 K/mm3 (150-450); Red Blood Count 4.84 M/mm3 (4.1-5.4); Red Cell Distribution Width 14.5 % (11.5-14.0); White Blood Count 7.3 K/mm3 (4.0-10.5)
[2021-04-01] MEDS: PATIENT OWN MEDICATION PO SCH (09:47)
[2021-04-01] MEDS: NICOTINE PATCH 7MG TD SCH (09:47)
[2021-04-01] MEDS: Pepcid 20 MG VIAL IV SCH ×2 (09:47→20:52)
--- NOTE | 2021-04-01 10:51 | CONS ---
CONSULT DATE: 03/30/2021 HISTORY: This is a 25 year-old female from [place] who is visiting. She states that two months ago she was hospitalized for approximately four days due to a gallbladder attack. She said that currently her pain is similar. He is having upper abdominal pain that radiates to her right side and that the pain was most significant when she first come in. She did have pain after eating yesterday and that seemed to have caused this. Currently her pain was less than it was yesterday and she is feeling better but her pain is not completely resolved. She states that in [place] they wanted her to see a pill coater first before doing her surgery so that her liver could be evaluated. She has a history of fatty liver disease as well as hepatitis C. PAST MEDICAL/SURGICAL HISTORY: Fatty liver disease, hepatitis C, knee surgery, ectopic surgery, ingrown hair surgery. MEDICATIONS: None. ALLERGIES: NKDA. SOCIAL HISTORY: Positive tobacco. Positive occasional alcohol use on weekend. Positive occasional marijuana use. The patient denies any other drug use or IV drug use currently but she did use IV drugs in the past. She states this was over two years ago. FAMILY HISTORY: None known per patient. LAB DATA AND TESTS: Ultrasound distended gallbladder with stones, gallbladder appeared thick, common bile duct 6.[address] scan gallbladder distended and spleen is enlarged at 14 cm. Laboratory findings: White blood cell count was 8 and now it is 12.1, hemoglobin stable at 13.3, PLT count 204,000. Sodium, potassium and creatinine are all normal. Bilirubin and liver function tests today and yesterday are normal. Amylase and lipase yesterday was normal. PHYSICAL EXAMINATION: GENERAL: No acute distress. The patient is sitting up in bed and comfortable. CVS: Regular rate and rhythm. PULMONARY: Nonlabored respirations. ABDOMEN: Soft, mildly tender to the upper abdomen and right upper quadrant. No rebound, no guarding, well healed Pfannenstiel incision. EXTREMITIES: Normal. ASSESSMENT AND PLAN: This is a 25 year-old female with a history of fatty liver disease as well as hepatitis C who has recurrent acute cholecystitis with cholelithiasis. Currently she is on antibiotics and IV fluids and is NPO. At this time I would like to continue her antibiotics, her NPO status. She can have ice chips however and will continue her fluids. I am going to get labs on her tomorrow. We have sent a request to [place]. I am concerned she states that she needed to have hepatology evaluation prior to undergoing surgery because they were concerned about her liver when she was in the hospital last time and she was hospitalized for four days and they did not perform her cholecystectomy and so due to this she and I have discussed getting her records and she would like to get her records from the hospital as well. Once these records are obtained then we can make an appropriate plan for her. At this time she is comfortable and will continue our current treatment. She does not need any emergency surgery. We will continue to follow.
[2021-04-01] MEDS ORDERED: SUBLIMAZE 100 MCG/2 ML ONE ×2 (17:53→19:44)
[2021-04-01] MEDS ORDERED: Versed 2 MG/2 ML Injection ONE (17:53)
[2021-04-01] MEDS ORDERED: Xylocaine-Mpf 2% 5 Ml Vial ONE ×2 (17:54)
[2021-04-01] MEDS ORDERED: DIPRIVAN 200 MG/20 ML IV ONE (17:56)
[2021-04-01] MEDS ORDERED: Zofran 4 MG/2 ML VIAL ONE (17:56)
[2021-04-01] MEDS ORDERED: Decadron 4 MG INJ ONE (17:56)
[2021-04-01] MEDS ORDERED: TORAdol 30 mg Injection ONE (17:56)
[2021-04-01] MEDS ORDERED: Zemuron 100 MG/10 ML ONE (17:56)
[2021-04-01] MEDS ORDERED: BRIDION 200MG/2ML IV ONE (17:56)
[2021-04-01] MEDS ORDERED: Sensorcaine 0.25% 10 ML ONE (17:58)
[2021-04-01] MEDS ORDERED: ROBINUL ONE (18:49)
[2021-04-01] MEDS ORDERED: PHENYLEPHRINE HCL ONE (19:02)
[2021-04-01] MEDS ORDERED: Ephedrine Sulfate 50 MG/ML ONE (19:02)
[2021-04-01] MEDS: DILAUDID 1 MG/1ML PCA IV PRN (20:52)
[2021-04-02] MEDS: Zosyn 3.375 GM Vial 3.375 GM in Sodium Chloride 100ML MINI-BAG PLUS 100 ML IV SCH ×2 (02:13→06:10)
[2021-04-02] MEDS: Sodium Chloride 0.9% W/ 20 mEq KCl/LITER 1,000 ML IV SCH (06:10)
[2021-04-02] MEDS ORDERED: TYLENOL 325 MG PO PRN (07:31)
[2021-04-02] MEDS: DILAUDID 1 MG/1ML PCA IV PRN (07:36)
[2021-04-02] MEDS: Pepcid 20 MG VIAL IV SCH (08:59)
[2021-04-02] MEDS: NICOTINE PATCH 7MG TD SCH (08:59)
[2021-04-02] MEDS: NORCO 5/325 MG PO PRN ×2 (08:59→13:49)
--- NOTE | 2021-04-02 09:01 | OP ---
SURGERY DATE/TIME: 04/01/20211811 PREOPERATIVE DIAGNOSIS: Acute cholecystitis. POSTOPERATIVE DIAGNOSES: Acute cholecystitis. PROCEDURE: Laparoscopic cholecystectomy. SURGEON: Oni Esquivel M.D. ANESTHESIA: General. ESTIMATED BLOOD LOSS: 100. CONDITION: Patient condition stable. COMPLICATIONS: None. SPECIMEN: Gallbladder. HISTORY: The patient is a 25 year-old female who presented with right upper quadrant pain consistent with acute cholecystitis. She does have history of hepatitis C with fatty liver. She does have some splenomegaly on the CT scan. Discussion had with the patient risk of infection, bleeding, injury to major structure, hernia, failure to resolve symptoms and she elected to proceed with surgery. FINDINGS: Acute cholecystitis with hydrops. Critical view obtained. DESCRIPTION OF PROCEDURE: The patient was brought to the operating room. General anesthesia introduced. She is placed supine with arms up. SCD's were applied and on. She received preoperative antibiotic. Time out performed. Veress needle inserted in left upper quadrant. Opening pressure was 7. Pneumoperitoneum established. A 5 mm Optiview trocar placed in the left upper quadrant. Abdomen surveyed. An 11 mm supraumbilical trocar is placed. Additional 5 mm trocars placed in the right upper quadrant. Marcaine injected in all port sites. There was a distended, tense gallbladder this is retracted and during retraction it did rupture. There was hydrops in the gallbladder. The gallbladder was then dissected free. The dissection was slightly tedious however it was acutely inflamed and edematous. Critical view clearly able to be obtained mostly with blunt dissection with [place] and L-[place] cautery. Critical view clearly obtained. Cystic duct is taken three down with a 5 mm metal clip diver helper. Cystic artery was taken with 5 mm metal clip diver helper. Both were divided. Gallbladder taken off the liver bed, placed in a specimen bag and removed through the 11 trocar site. It was partially morcellized inside the bag to remove it. There were multiple stones. Trocar reinserted. Right upper quadrant re-inspected. There was good hemostasis of liver. The clips are in good position. It is irrigated and suctioned until clear. The 11 trocar site was then closed with 0 Vicryl interrupted suture passer and the right upper quadrant ports removed under direct visualization. The left upper quadrant port used for desufflation and then removed. The skin is closed with 4-0 Monocryl suture. Steri-Strips and sterile dressings applied. All counts were correct. The patient tolerated the procedure well. Taken to the recovery room in stable condition.
[2021-04-02] MEDS: PATIENT OWN MEDICATION PO SCH (09:29)
[2021-04-02 11:46] VITALS: BP 90/43
[2021-04-02] MEDS ORDERED: Zosyn 3.375 GM Vial 3.375 GM in Sodium Chloride 100ML MINI-BAG PLUS 100 ML IV SCH (12:00)
[2021-04-02] MEDS ORDERED: MILK OF MAGNESIA 30 ML PO ONE (13:20)
[2021-04-02] MEDS ORDERED: PROVENTIL 2.5 MG/3 ML NEB IH ONE (15:47)
[2021-04-02 16:44] VITALS: PULSE 68; O2SAT 97
== END 2021-04-02 17:00 | disposition home or self-care (01) ==
LOC: ED 19:22 → MERGE 03-30 00:15 → MED SURG 03-30 00:15
PROVIDERS: ADMIT Family Medicine; ATTEND Family Medicine
DX: K81.0 Acute cholecystitis (principal); K82.1 Hydrops of gallbladder; R10.11 Right upper quadrant pain; Z86.19 Personal history of other infectious and parasitic diseases; K76.0 Fatty (change of) liver, not elsewhere classified; F17.200 Nicotine dependence, unspecified, uncomplicated; Z20.828 Contact with and (suspected) exposure to other viral communicable diseases
CPT/HCPCS: 36000; 36415; 47562; 74177; 76705; 80048; 80053; 80074; 80076; 80307; 81001; 82150; 83690; 84703; 85025; 87521; 87522; 93268; 94640; 94762; 96360; 96374; 96375; 96376; 99285; G0378; U0003; 88304; J1100; J1170; J1885; J2250; J2270; J2370; J2405; J2704; J3010; J7609; A9270-GY